=== PATIENT | male | born 1940 | race Caucasian/White ===

== ENCOUNTER 2025-01-16 00:57 | Emergency (ER) | payer OTHER, MEDICAID ==
[~2025-01-16] VITALS: Ht 175.3 cm; Wt 52.0 kg
--- NOTE | 2025-01-16 01:10 | ED.PDOC ---
History of Present Illness HPI Comments 85 year old male was BIBA for the c/c of a Mechanical fall injury. Per EMS pt slipped on an Ice cube a few minutes before arrival to the ED. Pt is noted to have a Laceration to the Left eyebrow w/ uncontrolled bleeding, and ecchymosis. Pt is A&Ox4, and denies LOC. No other associated symptoms, modifiers, recent injuries or sick contacts present at this time. Patient has advanced Parkinson's. Patient was hypertensive at arrival. Chief Complaint: Fall Injury Time Seen by MD: 01:05 Reviewed Notes: Nurses Notes, Presto Log Operator Notes, Medications, Allergies Allergies: Coded Allergies: NO KNOWN ALLERGIES (Unverified , 01/16/25) Information Source: Patient, Emergency Med Personnel Mode of Arrival: EMS Severity: Moderate Timing: Hours Duration: Since onset, Hours Prehospital treatment: None Past Medical History PAST MEDICAL HISTORY: Denies Past Medical History (Other): Advanced Parkinson's Surgical History: Denies all surgeries Family History Family History: Unknown Social History Smoker: Non-Smoker Alcohol: Denies ETOH Use Drugs: Denies Drug Use Lives In: Home Constitutional: denies: chills, diaphoresis, fatigue, fever, malaise, sweats, weakness, others EENTM: reports: others (Left-sided facial trauma with laceration); denies: blurred vision, double vision, ear bleeding, ear discharge, ear drainage, ear pain, ear ringing, eye pain, eye redness, hearing loss, mouth pain, mouth swelling, nasal discharge, nose bleeding, nose congestion, nose pain, photopho steven, tearing, throat pain, throat swelling, voice changes Respiratory: denies: cough, hemoptysis, orthopnea, SOB at rest, shortness of breath, SOB with excertion, stridor, wheezing, others Cardiovascular: denies: chest pain, dizzy spells, diaphoresis, Dyspnea on exertion, edema, irregular heart beat, left arm pain, lightheadedness, palpit ations, PND, syncope, others Gastrointestinal: denies: abdomen distended, abdominal pain, blood streaked b owels, constipated, diarrhea, dysphagia, difficulty swallowing, hematemesis, melena, nausea, poor appetite, poor fluid intake, rectal bleeding, rectal pain, vomiting, others Genitourinary: denies: burning, dysuria, flank pain, frequency, hematuria, incontinence, penile discharge, penile sore, pain, testicle pain, testicle swelling, urgency, others Neurological: denies: dizziness, fainting, headache, left sided numbness, left sided weakness, numbness, paresthesia, pre-existing deficit, right sided numbness, right sided weakness, seizure, speech problems, tingling, tremors, weakness, others Musculoskeletal: denies: back pain, gout, joint pain, joint swelling, muscle pain, muscle stiffness, neck pain, others Integumetry: reports: laceration (Superior and lateral left eyebrow); denies: bruises, change in color, change in hair/nails, dryness, lesions, lumps, rash, wounds, others Allergic/Immunocompromised: denies: Difficulty Healing, Frequent Infections, Hives, Itching, others Hematologic/Lymphatic: denies: anemia, blood clots, easy bleeding, easy bruising, swollen glands, others Endocrine: denies: excessive hunger, excessive sweating, excessive thirst, excessive urination, flushing, intolerance to cold, intolerance to heat, unexplained weight gain, unexplained weight loss, others Psychiatric: denies: anxiety, bipolar disorder, depression, hopeless, panic disorder, schizophrenia, sleepless, suicidal, others All Other Systems: Reviewed and Negative Physical Exam General Appearance: Mild Distress (Moderate distress due to anxiety related to his injury rather than definitive pain concerns.), Normal HEENT: Head (Patient has a extensive ecchymosis surrounding his right orbital region inclusive of the of her lower orbital areas. 3 cm diagonal laceration noted to lateral aspect of left eyebrow. Very mild active bleed at time of evaluation. Difficult to assess for skull depression or deformities. Patient does not display any signs of altered mental status.), Normal ENT Inspection, Pharynx Normal, TMs Normal Neck: Full Range of Motion, Non-Tender, Normal, Normal Inspection Respiratory: Chest Non-Tender, Lungs Clear, No Accessory Muscle Use, No Respiratory Distress, Normal Breath Sounds Cardiovascular: No Edema, No JVD, No Murmur, No Gallop, Normal Peripheral Pulses, Regular Rate/Rhythm Breast Exam: Deferred Gastrointestinal: No Organomegaly, Non Tender, No Pulsatile Mass, Normal Bowel Sounds, Soft Genitalia: Deferred Pelvic: Deferred Rectal: Deferred Extremities: No calf tenderness, Normal capillary refill, No pedal edema Musculoskeletal : Apperance: Normal Neurologic: Alert, Normal Affect, Normal Mood, Other (Patient has a advanced Parkinson's) Cerebellar Function: NOT DONE Reflexes: NOT DONE Skin: Dry, Normal Color, Warm Lymphatic: No Adenopathy Was a procedure done? Was a procedure done?: Yes Sedation Sedation?: No Laceration Repair : Location Left eyebrow Laceration Length 3cm Anesthetic: Lidocaine, Without epi Laceration Repair Prep: Saline Laceration Repair Wound Comple: epidermis/dermis repair, layered repair, subcut tissue repair, debridement Laceration Repair: Number of sutures, Layers Closed, Skin, Fascia, Gauze Informed consent obtained: Yes Risks, benefits, and alternati: Yes Other Procedure Procedure 4 cc of 1% lidocaine was utilized for local anesthesia of the 3 cm laceration to the lateral and superior aspect of the left eyebrow region. Sterile field placed. Copious irrigation performed. Five 5-0 Ethilon sutures were utilized in a simple interrupted fashion to close the wound. Minimal blood loss. P atient tolerated procedure well. Patient was cleaned thoroughly and clean dressing was applied. Differential Dx Considerations may include: Head trauma, facial laceration, skull fracture, subarachnoid hemorrhage, subdural hematoma X-Ray, Labs, Meds, VS Vital Signs Date Time Temp Pulse Resp B/P (MAP) Pulse Ox O2 Delivery O2 Flow Rate FiO2 01/16/25 00:57 98.0 85 18 158/98 (118) 96 98.0 X-Ray, Labs, Meds, VS Comment CT results were pending at time of this note. We has been having extensive wait x4 CT results to be returned and therefore, patient care is being transferred to Dr. Redd for review of CT results when returned. Once evaluated, he will respond accordingly. Patient has been advised to return to ED or primary care provider in 8-10 days for re-evaluation and probable suture removal. Advise antibiotics as directed until completion as well as pain medication as needed. Time of 1ST Reevaluation: 01:50 Reevaluation 1ST: Improved Consultation: PCP Patient Education/Counseling: Diagnosis, Treatment, Need For Follow Up Family Education/Counseling: Diagnosis, Treatment, No Family Present SEPSIS Sepsis Screen Date sepsis recognized/suspect: Jan 16, 2025 Time Sepsis recognized/suspect: 56 Recent Procedure: No On Antibiotic Therapy: No Respiratory Rate >20: No Heart Rate >90: No Temp<36 C (96.8 F) or >38.3 C: No SBP <90 or MAP <65 mmHG: No New Acute Mental Status Change: No Is the patient on CPAP, BIPAP,: No Physician Orders Head Without Contrast (01/16/25 01:33) Vital Signs Date Time Temp Pulse Resp B/P (MAP) Pulse Ox O2 Delivery O2 Flow Rate FiO2 01/16/25 00:57 98.0 85 18 158/98 (118) 96 98.0 Departure 1 Departure Time of Disposition: 01:51 Impression: Primary Impression: Head trauma Additional Impressions: Facial laceration Traumatic orbital hematoma Disposition: 30 STILL A PATIENT Condition: Stable Additional Instructions: Advised patient utilize antibiotics as directed until completion as well as pain medication as needed. Patient should return to ED or primary care provider in 8-10 days for re-evaluation and probable suture removal. e-Prescriptions Acetaminophen (Acetaminophen) 500 Mg Tab 500 MG PO Q4HP PRN, #20 TAB Prov: EUGENIA REYES PAC 01/16/25 Cephalexin (KEFLEX CAPSULE) 250 Mg Cp 1 CAP PO QID for 7 Days, #28 CAP Prov: EUGENIA REYES PAC 01/16/25 Discharged With: Self, Friend Critical Care Note Critical Care Time?: No Stability Stability form required: No Heart Score Heart Score: Heart Score Response (Comments) Value History N/A 0 EKG N/A 0 Age N/A 0 Risk Factors N/A 0 Troponin N/A 0 Total 0 I personally scribed for EUGENIA REYES PAC ([email or web address]) on 01/16/25 at 01:10. Electronically submitted by Sarthak Almeida ([email or web address]). I personally scribed for EUGENIA REYES PAC ([email or web address]) on 01/16/25 at 01:12. Electronically submitted by Sarthak Almeida ([email or web address]). EUGENIA REYES PAC Jan 16, 2025 01:10
[2025-01-16] MEDS ORDERED: ACET500T58 PO (01:53)
[2025-01-16] MEDS ORDERED: CEPH250C PO (01:53)
--- NOTE | 2025-01-16 04:35 | DVH ---
EXAM: CT HEAD WITHOUT CONTRAST INDICATION: Left-sided facial trauma superior to the eyebrow TECHNIQUE: CT of the head without intravenous contrast. Radiation Dose : 1. Head: CT Dose: CTDI volume is 58.13 mGy. Dose-length product is 1145.43 mGy*cm The dose indicators for CT are the volume Computed Tomography (CT) Dose Index (CTDIvol) and the Dose Length Product (DLP), and are measured in units of mGy and mGy-cm, respectively. These indicators are not patient dose, but values generated from the CT scanner acquisition factors. The report includes radiation exposure data for exposures received during this examination. COMPARISON: None FINDINGS: There is no evidence of acute intracranial hemorrhage, extra-axial collection, mass effect, midline s hift, herniation or hydrocephalus. Increased prominence of the ventricles, sulci and cisterns is consistent with sequelae of atrophic co rtical volume loss. The roldan-white differentiation is intact. Moderate diffuse confluent periventricular and subcortical white matter hypoattenuation is nonspecifi c but may be related to small vessel ischemic disease. Right maxillary mucosal sinus disease. The remaining visualized paranasal sinuses are clear. Partia l opacification of the left mastoid air cells. The right mastoid air cells are clear. Moderate left periorbital and preseptal soft tissue swelling and edema. The remaining surrounding sof t tissues and osseous structures are unremarkable. IMPRESSION: 1. No acute intracranial abnormality. 2. 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 3. Moderate left periorbital and preseptal soft tissue swelling and edema. Radiation optimization: All CT scans at this facility use at least one of these dose optimization marc hniques: automated exposure control mA and/or kV adjustment per patient size (includes targeted exam s where dose is matched to clinical indication) or iterative reconstruction.
[2025-01-16 05:03] VITALS: BP 148/81; PULSE 73; RESP 14; TEMP 98; O2SAT 96
[2025-01-18] MEDS ORDERED: ACET500T58 PO (19:24)
[2025-01-18] MEDS ORDERED: CEPH250C PO (19:24)
== END 2025-01-16 06:40 | disposition home or self-care (01) ==
LOC: EDBD 00:57 → ER 00:57
DX: S01.112A Laceration without foreign body of left eyelid and periocular area, initial encounter (principal); S05.12XA Contusion of eyeball and orbital tissues, left eye, initial encounter; S09.8XXA Other specified injuries of head, initial encounter; G20.A1 Parkinson's disease without dyskinesia, without mention of fluctuations; I10 Essential (primary) hypertension; W00.2XXA Other fall from one level to another due to ice and snow, initial encounter; Y93.89 Activity, other specified; Y92.89 Other specified places as the place of occurrence of the external cause; Y99.8 Other external cause status
CPT/HCPCS: 12052; 70450; J2003